=== PATIENT | male | born 1945 | race Caucasian/White ===

== ENCOUNTER 2021-09-22 06:26 | Day surgery (SDC) | payer OTHER ==
[~2021-09-22] VITALS: Ht 170.2 cm; Wt 65.8 kg
[~2021-09-22 06:26] MED LIST: ATO40T PO; CHOL50007 PO; CYAN250L PO; EMPA1TAB PO; GLIP5TAB12 PO; METF-929 PO; METO25TA93 PO
[2021-09-22] MEDS ORDERED: IODIXANOL 320MG/ML 100ML BTL IV ONE ×2 (07:43→08:35)
[2021-09-22] MEDS ORDERED: HEPARIN IN NS 1000Units/500mL 1,500 ML ONE (07:44)
[2021-09-22] MEDS ORDERED: fentaNYL CITRATE 100 MCG/2 ML VL ONE (07:49)
[2021-09-22] MEDS ORDERED: VERAPAMIL 2.5MG/ML INJ 2ML VIAL IV ONE (07:49)
[2021-09-22] MEDS ORDERED: HEPARIN SODIUM (PORCINE) 5000 UNITS/ML 1ML VIAL ONE (07:49)
[2021-09-22] MEDS ORDERED: ANGIOMAX 250 MG VIAL IV ONE (07:49)
[2021-09-22] MEDS ORDERED: SODIUM CHL 0.9% 50 ML ONE (07:50)
[2021-09-22] MEDS ORDERED: MIDAZOLAM HCL 2MG/2ML 2ml VIAL (1mg/ml) ONE (07:50)
[2021-09-22] MEDS ORDERED: LIDOCAINE 2%HCL (LOCAL ANESTH.) INJ 10ml MDV ONE ×2 (08:01→08:04)
[2021-09-22] MEDS ORDERED: TICAGRELOR 90 MG TAB ONE (09:03)
[2021-09-22] MEDS ORDERED: ASPirin 325 MG TAB ONE (09:04)
== END 2021-09-22 12:44 | disposition home or self-care (01) ==
LOC: CATH 06:26
PROVIDERS: ATTEND Internal Medicine Cardiovascular Disease
DX: R94.39 Abnormal result of other cardiovascular function study (principal); I25.10 Atherosclerotic heart disease of native coronary artery without angina pectoris; Z95.5 Presence of coronary angioplasty implant and graft; Z20.822 Contact with and (suspected) exposure to COVID-19
CPT/HCPCS: 93459; C1725; C1769; C1874; C1887; C1894; C9600; J0583; J1644; J2001; J2250; J3010; J7030; Q9967; U0003; 99152; 99153; C9605